=== PATIENT | male | born 1955 | race Caucasian/White ===

== ENCOUNTER 2017-07-30 19:01 | Emergency (ER) | payer BC, OTHER ==
[2017-07-30] MEDS ORDERED: Levofloxacin 250 MG Tab PO ONE (19:25)
--- NOTE | 2017-07-30 19:31 | EDM.PDOC ---
ED HPI GENERAL MEDICAL PROBLEM - General Chief Complaint: Gastrointestinal Problem Stated Complaint: CATHETER NOT WORKING Time Seen by Provider: 07/30/17 19:26 Source of Information: Reports: Patient History Limitations: Reports: No Limitations - History of Present Illness INITIAL COMMENTS - FREE TEXT/NARRATIVE: 52-year-old male presents to the ED for evaluation of malfunctioning catheter. Patient underwent da Kaden robotic assisted prostatectomy by Dr. Brown-- urologist in [place] on Saturday last week which was July 24. Tobias catheter was placed at the time of surgery. It became occluded on Saturday, April 27 but with aggressive irrigation and began to work once again and a clot was obtained. He states he's had no urine drainage in his bag since about 1500 hrs. today and his abdomen is becoming more painful. No severe cramps at this time. Denies any fever or chills. He is incontinent with some urine exuding around the Tobias catheter. Onset: Today Onset Date: 07/30/17 Onset Time: 15:00 Duration: Hour(s): Location: Reports: Abdomen (Tobias catheter problems with suspect occlusion.) Quality: Reports: Other Severity: Moderate (Lower abdominal pressure and discomfort with no contractions of the bladder yet.) Improves with: Reports: None Worsens with: Reports: Other Context: Reports: Other (Reasons total prostatectomy with the aid of da Kaden robot for cancer of the prostate. This was carried out 6 days ago. For catheters placed postoperative and has remained since that time. It is due to be removed on the of this month.). Denies: Activity (Sitting.), Exercise, Lifting, Sick Contact, Trauma Associated Symptoms: Denies: Cough, cough w sputum, Diaphoresis, Fever/Chills, Headaches, Loss of Appetite, Malaise, Nausea/Vomiting, Rash, Seizure, Shortness of Breath, Syncope, Weakness Treatments [employer]: Reports: Other (see below) (Nothing more than his usual meds.) - Related Data Allergies Allergy/AdvReac Type Severity Reaction Status Date / Time Sulfa (Sulfonamide Allergy Facial Verified 07/30/17 19:24 Antibiotics) Swelling Home Meds: Home Meds Cefdinir 300 mg PO ASDIRECTED 07/30/17 [History] Docusate Sodium/Sennosides [Senna Plus] 1 tab PO BID 07/30/17 [History] Lisinopril [Lisinopril] 20 mg PO DAILY 07/30/17 [History] Multivitamin [Multi-Vitamin Daily] 1 tab PO DAILY 07/30/17 [History] Oxybutynin 5 mg PO BID 07/30/17 [History] Potassium 99 mg PO DAILY 07/30/17 [History] Rosuvastatin [Crestor] 10 mg PO MOWEFR 07/30/17 [History] Sildenafil [Revatio] 60 - 100 mg PO ASDIRECTED PRN 07/30/17 [History] metFORMIN [Glucophage] 750 mg PO BID 07/30/17 [History] traMADol [Ultram] 50 mg PO Q6H PRN 07/30/17 [History] Past Medical History - Past Surgical History Male Surgical History: Reports: Prostatectomy (Total prostatectomy due to cancer of the prostate with PA-C SA of 7.2 with positive biopsies. This was done with the aid of the da Kaden robot in [facility] on July [address] Brown) Social & Family History - Living Situation & Occupation Living situation: Reports: Occupation: Employed (self employed [employer] ED ROS GENERAL - Review of Systems Review Of Systems: See Below Constitutional: Reports: Weakness, Fatigue, Decreased Appetite. Denies: Fever, Chills, Malaise, Weight Loss HEENT: Reports: No Symptoms Respiratory: Reports: No Symptoms Cardiovascular: Reports: No Symptoms Endocrine: Reports: Fatigue GI/Abdominal: Reports: Abdominal Pain (Recovering from multiple puncture wounds to the abdomen from da Kaden robot associated total prostatectomy done 6 days ago.), Decreased Appetite. Denies: Difficulty Swallowing, Distension, Flatus, Hematemesis, Hematochezia, Melena, Mucous in Stool, Nausea, Stool Incontinence, Vomiting : Reports: Other (Has had an indwelling Tobias catheter since time of surgery presents in retention at this time) Musculoskeletal: Reports: No Symptoms Skin: Reports: Bruising (Marked ecchymoses across the surgical wounds on across the lower abdomen both) Neurological: Reports: No Symptoms Psychiatric: Reports: No Symptoms Hematologic/Lymphatic: Reports: No Symptoms Immunologic: Reports: No Symptoms ED EXAM, GI/ABD - Physical Exam Exam: See Below Exam Limited By: No Limitations General Appearance: Alert, WD/WN, Mild Distress Eyes: Bilateral: Normal Appearance (No jaundice.) Throat/Mouth: Normal Inspection, Normal Lips, Normal Oropharynx Head: Atraumatic, Normocephalic Neck: Normal Inspection, Supple, Non-Tender Respiratory/Chest: No Respiratory Distress, Lungs Clear, Normal Breath Sounds Cardiovascular: Normal Peripheral Pulses, Regular Rate, Rhythm, No Edema, No Gallop, No Murmur GI/Abdominal Exam: Abnormal Bowel Sounds (Hypoactive bowel sounds all 4 quadrants.), Other (He has multiple ecchymoses from perhaps 8 stab wounds to the abdomen both lower quadrants from da Kaden robot associated radical prostatectomy. This is carried out 6 days ago. Expected diffuse ecchymoses around the wounds. Mildly tender to palpation.) (Male) Exam: Circumcised, Other (Tobias catheter in good position. Using a washcloth in his under shorts to collect urine extruded around the Tobias.) Back Exam: Normal Inspection, Full Range of Motion. No: CVA Tenderness (L), CVA Tenderness (R) Extremities: Normal Inspection, Normal Range of Motion, Non-Tender, No Pedal Edema Neurological: Alert, Oriented, CN II-XII Intact, Normal Cognition, Normal Gait Psychiatric: Normal Affect, Normal Mood Skin Exam: Warm, Dry, Intact, Normal Color, No Rash Course - Vital Signs Last Recorded V/S: Last Vital Signs Temp 36.3 C 07/30/17 19:19 Pulse 83 07/30/17 19:19 Resp 16 07/30/17 19:19 BP 132/90 07/30/17 19:19 Pulse Ox 93 L 07/30/17 19:19 - Orders/Labs/Meds Orders: Active Orders 24 hr Category Date Time Status Insert Tobias Catheter [Insert Urinary Catheter] [OM.PC] Care 07/30/17 19:30 Ordered Q24H Remove Tobias Catheter [Urinary Catheter Removal] [RC] Care 07/30/17 19:24 Active Per Unit Routine Urinary Catheter Assessment [RC] ASDIRECTED Care 07/30/17 19:25 Active Labs: Laboratory Tests 07/30/17 Range/Units 20:05 Urine Color Yellow (Yellow) Urine Appearance Cloudy H (Clear) Urine pH 5.5 (5.0-8.0) Ur Specific [place] > or = 1.030 (1.005-1.030) Urine Protein 2+ H (Negative) Urine Glucose (UA) Trace H (Negative) Urine Ketones 1+ H (Negative) Urine Occult Blood 3+ H (Negative) Urine Nitrite Negative (Negative) Urine Bilirubin Negative (Negative) Urine Urobilinogen 0.2 (0.2-1.0) Ur Leukocyte Esterase Trace H (Negative) Urine RBC 50-75 H (0-5) /hpf Urine WBC 0-5 (0-5) /hpf Ur Epithelial Cells 0-5 (0-5) /hpf Urine Bacteria Few (FEW) /hpf Urine Mucus Not seen (FEW) /hpf Meds: Medications Discontinued Medications Generic Name Dose Route Start Last Admin Trade Name Freq PRN Reason Stop Dose Admin Levofloxacin 500 mg 07/30/17 19:25 07/30/17 20:18 Levaquin PO 07/30/17 19:26 500 mg ONETIME ONE Administration - Radiology Interpretation Free Text/Narrative:: 62-year-old male presents to the ED for evaluation of malfunctioning Tobias catheter. He underwent radical prostatectomy with the aid of the da Kaden robot by his urologist Dr. Brown at [facility] in [facility] 6 days ago July 24. He states for the catheter plugged up with blood clot on Saturday, July 24 but with the aid of a local bore mill operator and/nurse the Tobias catheter was irrigated and started to feel full flow freely after clot was extruded. Today he has not been able to see any urine in his collecting chamber since about 1500 hrs. today and is developing lower abdominal tenderness and pressure discomfort. No bad cramps. On examination the abdomen is dull to percussion the lower abdomen with the suspect urinary bladder palpable mcfp between the pubic symphysis and the umbilicus. Plan will be to change of Tobias catheter. He' ll be given Levaquin 500 mg per ora. A new drainage bag and catheter to be placed. Urine will be sent for analysis as well. - Re-Assessments/Exams Free Text/Narrative Re-Assessment/Exam: 07/30/17 19:58 this reports from the catheters been changed out only 40 mils of 30 clear urine was obtained. The Tobais catheter. Have a crustaceans clot embedded within the end of it which was occluding it. Patient feels better and will be discharged to home. Departure - Departure Time of Disposition: 19:58 Disposition: Home, Self-Care 01 Condition: Fair Clinical Impression: Problem with Toibas catheter Qualifiers: Encounter type: initial encounter Qualified Code(s): T83.9XXA - Unspecified complication of genitourinary prosthetic device, implant and graft, initial encounter - Discharge Information Instructions: Tobias Catheter Care, Adult Referrals: Lyndsey Drake [employer] [Primary Care Provider] - Forms: ED Department Discharge Additional Instructions: Evaluation the emergency room due to catheter problems with suspect obstruction of the distal aspect of the tube by clot and debris. Therefore no Tobias catheter was placed in 40 mils of clear urine obtained from the bladder. You were given 1 dose of oral Levaquin 500 mg intravenously to protect against any bacteremia that it can occur from a Tobias catheter change. Continue taking medications and all fluids and diet as before. - My Orders Last 24 Hours: My Active Orders 07/30/17 19:24 Remove Tobias Catheter [Urinary Catheter Removal] [RC] Per Unit Routine 07/30/17 19:25 Urinary Catheter Assessment [RC] ASDIRECTED 07/30/17 19:30 Insert Tobias Catheter [Insert Urinary Catheter] [OM.PC] Q24H - Assessment/Plan Last 24 Hours: My Active Orders 07/30/17 19:24 Remove Tobias Catheter [Urinary Catheter Removal] [RC] Per Unit Routine 07/30/17 19:25 Urinary Catheter Assessment [RC] ASDIRECTED 07/30/17 19:30 Insert Tobias Catheter [Insert Urinary Catheter] [OM.PC] Q24H
== END 2017-07-30 20:20 | disposition home or self-care (01) ==
LOC: JD.ED 19:01
DX: T83.011A Breakdown (mechanical) of indwelling urethral catheter, initial encounter (principal); Z88.2 Allergy status to sulfonamides; Z79.84 Long term (current) use of oral hypoglycemic drugs; Z79.899 Other long term (current) drug therapy
CPT/HCPCS: 51702; 51798; 81001; 99284; A9270; 99283